=== PATIENT | male | born 1950 | race Caucasian/White ===

== ENCOUNTER 2017-10-23 07:12 | Inpatient (IN) | payer MEDICARE, MEDICAID ==
[2017-10-23 07:39] LABS: % BASOPHILS 0.8 % (0.0-2.0); % EOSINOPHILS 3.2 % (0.0-5.0); % LYMPHOCYTES 38.8 % (20.0-50.0); % MONOCYTES 7.2 % (2.0-10.0); BASOPHILE ABSOLUTE 0.1 Th/cumm (0-0.2); EOSINOPHILE ABSOLUTE 0.2 Th/cmm (0.1-0.4); HEMATOCRIT 45.4 % (41.0-60); HEMOGLOBIN 15.2 gm/dL (12-16); LYMPHOCYTE ABSOLUTE 2.8 Th/cmm (1.5-3.0); MEAN CORPUSCULAR HEMOGLOBIN 29.8 pg (27.0-31.0); MEAN CORPUSCULAR HGB CONC 33.5 pg (28.0-36.0); MONOCYTE ABSOLUTE 0.5 Th/cmm (0.3-1.0); NEUTROPHILE ABSOLUTE 3.6 Th/cmm (1.8-8.0); PLATELET COUNT 155 Th/cmm (150-400); RED CELL DISTRIBUTION WIDTH 14.2 % (11.5-20.0); WHITE BLOOD COUNT 7.2 Th/cmm (4.8-10.8)
--- NOTE | 2017-10-23 07:43 | ED Physician Chart ---
ED Chief Complaint/HPI - Patient Information Date Seen:: 10/23/17 Time Seen:: 07:29 Chief Complaint:: HEMATURIA History of Present Illness:: THIS IS A 67 YO MALE SENT FROM THE ASSISTED FOR AN EVALUATION OF HEMATURIA. THE PATIENT IS CHRONICALLY ILL WITH WEAKNESS AND SCHIZOPHRENIA. HE DENIES HAVING ANY PROBLEMS. Dr. CABRERA CALLED AND STATED THAT THIS PATIENT SHOULD BE SENT TO [facility] BECAUSE HE HAS BEEN IN WITHDRAWAL AND ANXIETY. Allergies:: Allergies Allergy/AdvReac Type Severity Reaction Status Date / Time No Known Allergies Allergy Verified 10/23/17 07:26 Vitals:: Vital Signs - 8 hr 10/23/17 07:26 Temp 97.6 F HR 72 RR 18 BP 162/97 O2 Sat % 96 Historian:: Patient, EMS, Medical Records Review:: Nurse's Note Reviewed, Transfer documents Reviewed <Humberto Cintron - Last Filed: 10/23/17 09:10> - Patient Information Allergies:: Allergies Allergy/AdvReac Type Severity Reaction Status Date / Time No Known Allergies Allergy Verified 10/23/17 07:26 <Sobeida Jim - Last Filed: 10/24/17 07:49> ED Review of Systems - Review of Systems General/Constitutional: No fever, No chills, No weight loss, No weakness, No diaphoresis, No edema, No loss of appetite Skin: No skin lesions, No rash, No bruising Head: No headache, No light-headedness Eyes: No loss of vision, No pain, No diplopia ENT: No earache, No nasal drainage, No sore throat, No tinnitus Neck: No neck pain, No swelling, No thyromegaly, No stiffness, No mass noted Cardio Vascular: No chest pain, No palpitations, No PND, No orthopnea, No edema Pulmonary: No SOB, No cough, No sputum, No wheezing GI: No nausea, No vomiting, No diarrhea, No pain, No melena, No hematochezia, No constipation, No hematemesis G/U: No dysuria, No frequency, No hematuria Musculoskeletal: No bone or joint pain, No back pain, No muscle pain Endocrine: No polyuria, No polydipsia Psychiatric: No prior psych history, No depression, No anxiety, No suicidal ideation Hematopoietic: No bruising, No lymphadenopathy Allergic/Immuno: No urticaria, No angioedema Neurological: No syncope, No focal symptoms, No weakness, No paresthesia, No headache, No seizure, No dizziness, No confusion, No vertigo <Humberto Cintron Last Filed: 10/23/17 09:10> ED Past Medical History - Past Medical History Obtainable: Yes Past Medical History: Other (MENTAL DISORDER) Family History: None Social History: Non Smoker, No Alcohol, No Drug Use, Care Facility Surgical History: None Psychiatricy History: Schizophrenia Medication: Reviewed <Humberto Cintron Last Filed: 10/23/17 09:10> Family Medical History - Family Member Mother History Unknown: Yes <Humberto Cintron Filed: 10/23/17 09:10> ED Physical Exam - Physical Examination General/Constitutional: Awake, Well-developed, well-nourished, Alert, No distress, GCS 15, Non-toxic appearing, Ambulatory Head: Atraumatic Eyes: Lids, conjuctiva normal, PERRL, EOMI Skin: Nl inspection, No rash, No skin lesions, No ecchymosis, Well hydrated, No lymphadenopathy ENMT: External ears, nose nl, Nasal exam nl, Lips, teeth, gums nl Neck: Nontender, Full ROM w/o pain, No JVD, No nuchal rigidity, No bruit, No mass, No stridor Respiratory: Nl effort/Exclusion, Clear to Auscultation, No Wheeze/Rhonchi/Rales Cardio Vascular: RRR, No murmur, gallop, rubs, NL S1 S2 GI: No tenderness/rebounding/guarding, No organomegaly, No hernia, Normal BS's, Nondistended, No mass/bruits, No McBurney tenderness : No CVA tenderness Extremities: No tenderness or effusion, Full ROM, normal strength in all extremities, No edema, Normal digits & nails Neuro/Psych: Alert/oriented, DTR's symmetric, Normal sensory exam, Normal motor strength, Judgement/insight normal, Mood normal, Normal gait, No focal deficits Misc: Normal back, No paraspinal tenderness <Humberto Cintron Filed: 10/23/17 09:10> ED Labs/Radiology/EKG Results - Lab Results Results: Abnormal Lab Results 10/23/17 10/23/17 10/23/17 07:30 07:30 07:30 WBC 7.2 RBC 5.10 Hgb 15.2 Hct 45.4 MCV 89.0 MCH 29.8 MCHC Differential 33.5 RDW 14.2 Plt Count 155 MPV 8.0 Neutrophils % 50.0 Lymphocytes % 38.8 Monocytes % 7.2 Eosinophils % 3.2 Basophils % 0.8 PT 11.0 INR 1.06 PTT (Actin FS) 25.2 L Sodium 137 Potassium 3.6 Chloride 105 Carbon Dioxide 25.4 Anion Gap 10.2 BUN 14 Creatinine 0.9 Est GFR ( Amer) > 60.0 Est GFR (Non-Af Amer) > 60.0 BUN/Creatinine Ratio 15.6 Glucose 101 Calcium 9.2 Total Bilirubin 0.7 AST 17 ALT 18 Alkaline Phosphatase 72 Troponin I Total Protein 6.3 Albumin 3.7 L Globulin 2.6 Albumin/Globulin Ratio 1.4 10/23/17 07:30 WBC RBC Hgb Hct MCV MCH MCHC Differential RDW Plt Count MPV Neutrophils % Lymphocytes % Monocytes % Eosinophils % Basophils % PT INR PTT (Actin FS) Sodium Potassium Chloride Carbon Dioxide Anion Gap BUN Creatinine Est GFR ( Amer) Est GFR (Non-Af Amer) BUN/Creatinine Ratio Glucose Calcium Total Bilirubin AST ALT Alkaline Phosphatase Troponin I < 0.01 L Total Protein Albumin Globulin Albumin/Globulin Ratio - Radiology Results Results: CHEST X-RAY = NAD - EKG Interpretations EKG Time:: 07:24 Rate & Rhythm: RATE=62, SINUS [place]: LEFT Intervals: NO ECTOPY SEEN <Humberto Cintron - Last Filed: 10/23/17 09:10> - Lab Results Results: Laboratory Tests 10/23/17 10/23/17 10/23/17 07:30 07:30 07:30 WBC 7.2 RBC 5.10 Hgb 15.2 Hct 45.4 MCV 89.0 MCH 29.8 MCHC Differential 33.5 RDW 14.2 Plt Count 155 MPV 8.0 Neutrophils % 50.0 Lymphocytes % 38.8 Monocytes % 7.2 Eosinophils % 3.2 Basophils % 0.8 PT 11.0 INR 1.06 PTT (Actin FS) 25.2 L Sodium 137 Potassium 3.6 Chloride 105 Carbon Dioxide 25.4 Anion Gap 10.2 BUN 14 Creatinine 0.9 Est GFR ( Amer) > 60.0 Est GFR (Non-Af Amer) > 60.0 BUN/Creatinine Ratio 15.6 Glucose 101 Calcium 9.2 Total Bilirubin 0.7 AST 17 ALT 18 Alkaline Phosphatase 72 Troponin I Total Protein 6.3 Albumin 3.7 L Globulin 2.6 Albumin/Globulin Ratio 1.4 TSH Urine Source Urine Color Urine Clarity Urine pH Ur Specific [place] Urine Protein Urine Glucose (UA) Urine Ketones Urine Blood Urine Nitrate Urine Bilirubin Urine Urobilinogen Ur Leukocyte Esterase Urine RBC Urine WBC Ur Epithelial Cells Urine Bacteria Urine Mucus 10/23/17 10/23/17 10/23/17 07:30 07:30 08:08 WBC RBC Hgb Hct MCV MCH MCHC Differential RDW Plt Count MPV Neutrophils % Lymphocytes % Monocytes % Eosinophils % Basophils % PT INR PTT (Actin FS) Sodium Potassium Chloride Carbon Dioxide Anion Gap BUN Creatinine Est GFR ( Amer) Est GFR (Non-Af Amer) BUN/Creatinine Ratio Glucose Calcium Total Bilirubin AST ALT Alkaline Phosphatase Troponin I < 0.01 L Total Protein Albumin Globulin Albumin/Globulin Ratio TSH 2.57 Urine Source CLEAN C Urine Color YELLOW Urine Clarity CLEAR Urine pH 6.0 Ur Specific [place] 1.025 Urine Protein NEGATIVE Urine Glucose (UA) NEGATIVE Urine Ketones NEGATIVE Urine Blood NEGATIVE Urine Nitrate NEGATIVE Urine Bilirubin NEGATIVE Urine Urobilinogen 0.2 Ur Leukocyte Esterase NEGATIVE Urine RBC 0-2 H Urine WBC 0-2 Ur Epithelial Cells FEW Urine Bacteria OCCASIONAL Urine Mucus FEW <Sobeida Jim - Last Filed: 10/24/17 07:49> ED Assessment - Assessment General Assessment: PSYCHOSIS <Humberto Cintron - Last Filed: 10/23/17 09:10> ED Septic Shock - . Is Septic Shock (SBP<90, OR Lactate>4 mmol\L) present?: No - <6hrs of presentation: Vital Signs: Vital Signs - 8 hr 10/23/17 07:26 Temp 97.6 F HR 72 RR 18 BP 162/97 O2 Sat % 96 <Humberto Cintron - Last Filed: 10/23/17 09:10> - . Is Septic Shock (SBP<90, OR Lactate>4 mmol\L) present?: No <Sobeida Jim - Last Filed: 10/24/17 07:49> ED Reassessment (Disposition) - Reassessment Reassessment Condition:: Unchanged - Diagnosis Diagnosis:: PSYCHOSIS - Patient Disposition Discharge/Transfer:: Acute Care w/in this hosp Admitting Medical Physician:: Eric Cabrera Condition at Disposition:: Unchanged <Humberto Cintron - Last Filed: 10/23/17 09:10> - Diagnosis Diagnosis:: Hematuria Hypertension - Patient Disposition Discharge/Transfer:: Acute Care w/in this hosp <Sobeida Jim - Last Filed: 10/24/17 07:49> ED Discharge Plan <Humberto Cintron - Last Filed: 10/23/17 09:10> <Sobeida Jim - Last Filed: 10/24/17 07:49> - Patient Disposition Admit/Discharge/Transfer: Acute Care w/in this hosp Condition at Disposition: Unchanged
[2017-10-23 07:48] LABS: INR 1.06 (0.5-1.4)
[2017-10-23 07:51] LABS: ALB/GLOB RATIO 1.4 (1.0-1.8); ALBUMIN 3.7 gm/dL (4.2-5.5); ALKALINE PHOSPHATASE 72 U/L (34-104); ANION GAP 10.2 (7.0-16.0); BILIRUBIN,TOTAL 0.7 mg/dL (0.3-1.0); BUN - UREA NITROGEN 14 mg/dL (7-25); CALCIUM SERUM 9.2 mg/dL (8.6-10.3); CARBON DIOXIDE 25.4 mEq/L (21.0-31.0); CHLORIDE 105 mEq/L (98-107); CREATININE - SERUM 0.9 mg/dL (0.7-1.3); GFR AFRICAN-AMERICAN > 60.0 ml/min (>90); GFR NON AFRICAN-AMERICAN > 60.0 ml/min; GLUCOSE 101 mg/dL (70-105); POTASSIUM SERUM 3.6 mEq/L (3.5-5.1); SGOT 17 U/L (13-39); SGPT/ALT 18 U/L (7-52); SODIUM SERUM 137 mEq/L (136-145); TOTAL PROTEIN,SERUM 6.3 gm/dL (6.0-8.3)
[2017-10-23 08:42] LABS: URINE MICROSCOPIC INDICATED? YES; URINE SOURCE CLEAN C
[2017-10-23 08:47] LABS: URINE BILIRUBIN NEGATIVE (NEGATIVE); URINE BLOOD NEGATIVE (NEGATIVE); URINE GLUCOSE (UA) NEGATIVE (NEGATIVE); URINE KETONE NEGATIVE (NEGATIVE); URINE LEUKOCYTE ESTERASE NEGATIVE (NEGATIVE); URINE NITRATE NEGATIVE (NEGATIVE); URINE PROTEIN NEGATIVE (NEGATIVE); URINE UROBILINOGEN 0.2 E.U./dL (0.2 - 1.0)
[2017-10-23 08:48] LABS: URINE CLARITY CLEAR (CLEAR); URINE COLOR YELLOW
[2017-10-23 08:51] LABS: URINE BACTERIA OCCASIONAL /hpf (NONE SEEN); URINE EPITHELIAL CELLS FEW /lpf (FEW); URINE RBC 0-2 /hpf (0-5); URINE WBC 0-2 /hpf (0-5)
--- NOTE | 2017-10-23 09:03 | Diagnostic Imaging Report ---
Portable chest x-ray History: Cough Allowing for portable technique the heart size is normal. No focal pulmonary parenchymal processes. No hilar or mediastinal abnormalities. Impression: No acute abnormalities.
[2017-10-23] MEDS ORDERED: Pneumococcal Vaccine 0.5 mL Vial IM ONE (16:04)
[2017-10-24] MEDS ORDERED: Magnesium Hydroxide (MOM) 30 mL UDC PO PRN (00:10)
[2017-10-24] MEDS ORDERED: Non-Formulary Item 1 EA (Paliperidone Palmitate [Invega Sustenna] 156 MG) IM SCH (00:15)
--- NOTE | 2017-10-24 01:14 | History & Physical ---
ADMIT DATE: 10/23/2017 CHIEF COMPLAINT: Severe weakness, anxiety, very depressed, very weak, could not eat. HISTORY OF PRESENT ILLNESS: The patient is a 67-year-old male admitted from the Emergency Room due to altered level of consciousness and hematuria, poor p.o. intake, failure to thrive. The patient is also confused, agitated and depressed from time to time. The patient does have history of psychosis, but for the past few days, the patient has increasing anxiety, depression and hallucination according to nursing staff. Since the day before the patient was having hematuria according to the nursing staff in senior living. PAST MEDICAL HISTORY: Psychosis, anxiety, degenerative joint disease, constipation, gastroesophageal reflux disease, gastritis, weakness. PAST SURGICAL HISTORY: The patient denies significant past surgical history; however, the reliability of this is dubious due to patient's mental status. REVIEW OF SYSTEMS: As per HPI cannot be really reliably performed as the patient is still confused and does not really answer questions properly. PHYSICAL EXAMINATION: GENERAL: Well-developed male in no acute distress. SKIN: Warm and dry. VITAL SIGNS: Basically stable. HEENT: Normocephalic, atraumatic. Pupils equal, round, react to light and accommodation. CHEST: Symmetrical. LUNGS: Few wheezing appreciated. CARDIAC: Normal sinus rhythm. S1 and S2. ABDOMEN: Benign, soft, nontender. EXTREMITIES: No clubbing, cyanosis, edema bilaterally . NEUROLOGIC: Unremarkable. LABORATORY DATA: Lab reviewed and seen from the computer. ASSESSMENT AND PLAN: 1. Altered level of consciousness. 2. Metabolic encephalopathy, dementia and psychosis. 3. Failure to thrive: Multifactorial partially due to poor p.o. intake. 4. Anxiety/depression: Psychiatrist consultation. 5. Psychosis, by history: Adjust medication. 6. Hematuria, workup in progress. 7. DVT prophylaxis. JOB# [id number]
[2017-10-24] MEDS: Multivitamin Tab PO SCH (09:33)
[2017-10-24] MEDS ORDERED: VTE Chemical Prophylaxis Screen/Admission MC PRN (11:15)
--- NOTE | 2017-10-25 03:45 | Progress Notes ---
DATE: 10/24/2017 SUBJECTIVE: The patient is confused, lethargic, and afebrile. OBJECTIVE: VITAL SIGNS: Stable. HEENT: Normocephalic and atraumatic. Pupils equal, round, and react to light and accommodation. CHEST: Symmetrical. LUNGS: Few wheezing appreciated. CARDIAC: Normal sinus rhythm. S1 and S2. ABDOMEN: Benign, soft, and nontender. EXTREMITIES: No clubbing, cyanosis, or edema ____. NEUROLOGIC: Unremarkable. LABORATORY DATA: Reviewed. ASSESSMENT AND PLAN: 1. Failure to thrive: Workup in progress. 2. Altered level of consciousness, on and off. We will observe closely. 3. Poor p.o. intake: Nutrition consultation appreciated. 4. Anxiety: Ativan p.r.n. and observe closely. 5. Psychosis: Adjust medication as needed. 6. DVT prophylaxis. JOB# [id number]
[2017-10-25] MEDS: Multivitamin Tab PO SCH (08:58)
[2017-10-26 06:50] LABS: % BASOPHILS 0.4 % (0.0-2.0); % EOSINOPHILS 3.5 % (0.0-5.0); % LYMPHOCYTES 37.7 % (20.0-50.0); % MONOCYTES 9.2 % (2.0-10.0); % NEUTROPHILS 49.2 % (40.0-80.0); EOSINOPHILE ABSOLUTE 0.2 Th/cmm (0.1-0.4); HEMATOCRIT 42.9 % (41.0-60); HEMOGLOBIN 14.5 gm/dL (12-16); LYMPHOCYTE ABSOLUTE 2.6 Th/cmm (1.5-3.0); MEAN CELL VOLUME 90.3 fl (80-99); MEAN CORPUSCULAR HEMOGLOBIN 30.6 pg (27.0-31.0); MEAN CORPUSCULAR HGB CONC 33.8 pg (28.0-36.0); MEAN PLATELET VOLUME 8.3 fl; MONOCYTE ABSOLUTE 0.6 Th/cmm (0.3-1.0); NEUTROPHILE ABSOLUTE 3.4 Th/cmm (1.8-8.0); PLATELET COUNT 167 Th/cmm (150-400); RED BLOOD COUNT 4.75 Mil/cmm (3.80-5.80); RED CELL DISTRIBUTION WIDTH 14.3 % (11.5-20.0); WHITE BLOOD COUNT 6.8 Th/cmm (4.8-10.8)
[2017-10-26 07:01] LABS: BUN - UREA NITROGEN 22 mg/dL (7-25); CALCIUM SERUM 8.8 mg/dL (8.6-10.3); CARBON DIOXIDE 24.7 mEq/L (21.0-31.0); CHLORIDE 107 mEq/L (98-107); CREATININE - SERUM 0.9 mg/dL (0.7-1.3); GFR AFRICAN-AMERICAN > 60.0 ml/min (>90); GFR NON AFRICAN-AMERICAN > 60.0 ml/min; GLUCOSE 90 mg/dL (70-105); POTASSIUM SERUM 3.7 mEq/L (3.5-5.1); SODIUM SERUM 138 mEq/L (136-145)
--- NOTE | 2017-10-26 07:19 | Progress Notes ---
DATE: 10/25/2017 SUBJECTIVE: The patient is somewhat confused, lethargic, agitated as well. OBJECTIVE: VITAL SIGNS: Basically stable. HEENT: Normocephalic, atraumatic. Pupils equal, round, react to light and accomodation. CHEST: Symmetrical. LUNGS: Few wheezing appreciated. HEART: Normal sinus rhythm. S1, S2. ABDOMEN: Benign, soft, nontender. EXTREMITIES: No clubbing, cyanosis or edema bilateral . NEUROLOGIC: Unremarkable. LABORATORY DATA: Reviewed. ASSESSMENT AND PLAN: 1. Altered level of consciousness on and off, but improving. 2. Failure to thrive, improving. 3. Poor p.o. intake, improved. 4. Anxiety: Ativan p.r.n. has been effective. 5. Psychosis, improving. 6. DVT prophylaxis. 7. Discharge planning for tomorrow. JOB# [id number]
[2017-10-26] MEDS: Multivitamin Tab PO SCH (08:14)
--- NOTE | 2017-10-27 04:08 | Discharge Summary ---
DATE OF DISCHARGE: 10/26/2017 FINAL DIAGNOSES: 1. Altered level of consciousness, basically resolved. 2. Anxiety and depression, stabilized. 3. Noncompliance, improved. 4. History of psychosis, stabilized. 5. Failure to thrive, improved. 6. Hematuria with elevated PSA and CEA: The patient will be followed by his primary care physician and referred to urologist as outpatient. This can be scheduled as outpatient. HOSPITAL COURSE: The patient is a 67-year-old male admitted due to agitation, anxiety, failure to thrive, and very poor p.o. intake as well as mild hematuria. As the patient was ordered IV hydration, but he refused. The patient's blood culture preliminary results are still pending. I will follow up with final result. Because of hematuria, I ordered a PSA and CEA, which both came back to be elevated. I will inform the patient's primary care physician as outpatient to follow up with urologist. DISCHARGE CONDITION: Stable. DISPOSITION: [facility]. DISCHARGE MEDICATIONS: Continue home medications. DIET: Cardiac soft diet. ACTIVITY: Bed rest with physical therapy. FOLLOWUP: Follow up the same day with his primary care physician who is available. [facility]# [id number]
== END 2017-10-26 14:00 | DRG 640 ==
LOC: ER 07:12 → MSI 12:06
PROVIDERS: ADMIT Internal Medicine; ATTEND Internal Medicine
DX: R62.7 Adult failure to thrive (principal); G93.41 Metabolic encephalopathy; R31.9 Hematuria, unspecified; F29 Unspecified psychosis not due to a substance or known physiological condition; F20.9 Schizophrenia, unspecified; F41.9 Anxiety disorder, unspecified; M19.90 Unspecified osteoarthritis, unspecified site; K59.00 Constipation, unspecified; K21.9 Gastro-esophageal reflux disease without esophagitis; F03.90 Unspecified dementia, unspecified severity, without behavioral disturbance, psychotic disturbance, mood disturbance, and anxiety; F32.9 Major depressive disorder, single episode, unspecified; Z91.19 Patient's noncompliance with other medical treatment and regimen
CPT/HCPCS: 36415-UA; 71045-TC; 80048-TC; 80053-TC; 81001-TC; 82378-90; 83735-TC; 84153-90; 84443-TC; 84484-TC; 85025-TC; 85610-TC; 85730-TC; 93005; J1644